=== PATIENT | male | born 1980 | race Two or more races ===

== ENCOUNTER 2021-07-29 09:48 | Outpatient (CLI) | payer OTHER | END 2021-07-29 10:00 | disposition home or self-care (01) | LOC: SONOGRAMA 09:48 | PROVIDERS: ATTEND Urology | DX: R22.9 Localized swelling, mass and lump, unspecified (principal) ==

== ENCOUNTER 2021-12-23 08:23 | Outpatient (CLI) | payer OTHER | END 2021-12-23 08:30 | disposition home or self-care (01) | LOC: SONOGRAMA 08:23 | PROVIDERS: ATTEND Urology | DX: R22.9 Localized swelling, mass and lump, unspecified (principal) ==

== ENCOUNTER 2022-09-01 07:15 | Outpatient (CLI) | payer OTHER | END 2022-09-01 07:22 | disposition home or self-care (01) | LOC: SONOGRAMA 07:15 | PROVIDERS: ATTEND General Practice | DX: N50.82 Scrotal pain (principal) ==